=== PATIENT | male | born 1970 | race Caucasian/White ===

== ENCOUNTER 2018-09-11 08:59 | Day surgery (SDC) | payer BC, SELFPAY ==
--- NOTE | 2018-09-11 06:28 | W.COLOREPORT ---
Date of service: 09/11/18 Time of Service: 11:06 Colonoscopy Report Date of procedure: 09/11/18 Pre-op diagnosis general: Colon Cancer Screening Post-op diagnosis procedure note: other (Sigmoid Diverticulosis) Procedure: Colonoscopy Surgeon: Genny Montes De Oca Anesthesia proc note operative: other (General/ ASA 2/ Jana Mireles CRNA) Estimated blood loss (mL): 0 Pathology: none sent Complications: None Disposition: same day Indications: Mr. Baker is a pleasant 48 year old male seen in the office for his first screening colonoscopy. He has no family history of colon cancer that he is aware of. Risks, benefits and complications have been reviewed. Complications include but are not limited to bleeding, pain, perforation, missed small lesion/polyp, sore throat, aspiration and adverse reaction to the medications. Questions were entertained and answered to their satisfaction and they wished to proceed. No guarantees were given or implied. Prep: Miralax/Dulcolax Procedure Start Time: 11:06 Procedure End Time: 11:26 Retraction Time: 13 minutes Findings: Moderate sigmoid diverticulosis Procedure Description: After informed consent was obtained the patient was taken to the procedure room and placed in a left decubitous position. Monitors were applied and a time out was done. The patients name, date of , procedure, allergies to medications and metal in their body was reviewed. The patient was then sedated. Once sedated and comfortable a rectal exam was done. External exam was normal. Internal exam revealed a normal sphincter tone and no palpable masses. The prostate felt smooth. The scope was then introduced and retro-flexed. No internal hemorrhoids were identified. The scope was then advanced to the cecum without difficulty. The TI and appendiceal orifice were identified. The prep was good. The scope was then slowly retracted over 13 minutes back into the rectum. There were no polyps. There was moderate diverticulosis of the sigmoid colon. The scope was removed and the patient was woken up and taken back to Same day surgery in stable condition. The patient tolerated the procedure well and there were no immediate complications. Follow up: The patient should follow up in 10 years unless they develop changes in bowel habits or other new gastrointestinal complaints.
--- NOTE | 2018-09-11 06:38 | W.PM.DSUDISC ---
Discharge Plan Disposition Patient Disposition: HOME Condition: Good Discharge Details Reason For Visit: SCREENING Attending Provider: Genny Montes De Oca Primary Care Provider: Wendy Alvarez Home Meds and New Rx's Prescriptions: Continued ibuprofen [Advil Liqui-Gel] 200 MG capsule 400 mg PO Q6H PRN RF: 0 Discontinued polyethylene glycol 3350 17 gram/dose powder 238 g PO ONCE Qty: 238 RF: 0 bisacodyl [Dulcolax (bisacodyl)] 5 mg tablet,delayed release (DR/EC) 5 mg PO ONCE Qty: 4 RF: 0 Discharge Instructions Instructions: Colonoscopy (DC), Diverticulosis (DC) Additional Instructions: Findings: Diverticulosis Follow up: 10 years Please call if you develop: fevers >101.5 Nausea or Vomiting Abdominal pain that is not transient DAY SURGERY UNIT POST COLONOSCOPY INSTRUCTIONS 1. Because there will be medication in your system for the next 24 hours, you may feel a little sleepy. Your coordination will be affected. Therefore: a. Do not drive or operate dangerous equipment for 24 hours. b. Do not drink alcohol beverages for 24 hours (not even beer). c. Plan to go home and rest for the day. 2. Generally there are no restrictions on your activity after a day or so has gone by, but you may feel a bit fatigued for a few days. 3 After you arrive home you may have a light meal and return to a normal diet as you can tolerate it without feeling sick to your stomach. 4. After surgery, you may feel pain or discomfort. This should be only transient, but if it persists please contact your doctor. 5. If there are any questions regarding the findings of your procedure, please feel free to contact your doctor. 6. If you are unable to contact your doctor with a problem, contact the hospital at [phone]. 7. Continue all your regular medications unless directed otherwise. I understand the above instructions and have no questions. Signature of Patient or Responsible Adult Escort Date/Time Name of Responsible Adult Escort Signature of Nurse Date/Time Activity:: Activity as Tolerated Diet:: High Fiber diet Discharge Orders Discharge Orders: Discharge Order (Routine); Ordered 09/11/18 Ordered By: Genny Montes De Oca DS: Diagnosis Discharge Diagnosis (1) S/P colonoscopy: Status: Acute (2) Diverticulosis: Status: Acute
[2018-09-11 09:19] VITALS: BP 142/98; PULSE 80; RESP 20; TEMP 37.3; O2SAT 97
[2018-09-11] MEDS: Lactated Ringers 1,000 ML 80 ML IV (09:50)
[2018-09-11 12:03] VITALS: BP 105/73; PULSE 78; RESP 16; TEMP 36.6; O2SAT 95
[2018-09-11 12:44] VITALS: BP 113/75; PULSE 84; RESP 16; TEMP 36.8; O2SAT 97
== END 2018-09-11 12:55 | disposition home or self-care (01) ==
LOC: SUR 08:59
PROVIDERS: PCP Nurse Practitioner; Visit Provider Surgery
PROC: 0DJD8ZZ Inspection of Lower Intestinal Tract, Via Natural or Artificial Opening Endoscopic (ICD-10-PCS; CPT 45378; principal; 2018-09-11 10:30)
DX: Z12.11 Encounter for screening for malignant neoplasm of colon (principal); K57.30 Diverticulosis of large intestine without perforation or abscess without bleeding
CPT/HCPCS: 45378

== ENCOUNTER 2018-10-24 09:00 | Day surgery (SDC) | payer OTHER, SELFPAY ==
--- NOTE | 2018-10-24 07:43 | W.PREOPHP ---
Date of service: 10/24/18 Time of Service: 10:05 Assessment and Plan (1) Prepatellar bursitis of right knee: Current visit: No Status: Acute Mark is a 48-year-old who has persistent pre-patella bursa of the right knee. 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 He is tried to treat this conservatively but continues to have limitations. It is quite large and has not receded in size over time. Therefore, I recommended surgical excision. I discussed the risk of the procedure to include bleeding, infection, pain, stiffness, recurrence, wound healing issues and persistent drainage, need for repeat procedures. Despite these risk, he elects to proceed. 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 He has had some mild redness in the past but nothing persistent. Never any drainage. The fluid has not decreased in size and continues to limit his ability to kneel and squat which is essential in his occupation. He has failed conservative options. Review of Systems Review of Systems All systems reviewed & are unremarkable except as noted in HPI and below PFSH Medical History Diverticulosis (Acute ~09/11/18) Elevated blood pressure reading (Acute) Family history of colitis in mother (Chronic) Family history of colon cancer (Chronic) Skin tag (Chronic) Surgical History History of hernia repair (Chronic) S/P colonoscopy (Acute ~09/11/18) Family History Other Family history of colitis in mother Family history of colon cancer Prostate CA Social History Smoking/Tobacco Use Status: Never Alcohol Intake: current Alcohol Intake frequency: holidays/special occasions only Alcohol type: beer Drug use: Never Substance use type: does not use Details: Alcohol rare last time being in September Do you feel safe at home: Yes Do you feel safe in your relationship?: Yes Meds Home Medications Medication Instructions Recorded Confirmed Type ibuprofen [Advil Liqui-Gel] 400 mg PO Q6H PRN tab-cap 09/17/14 10/24/18 History Allergies Allergy/AdvReac Type Severity Reaction Status Date / Time No Known Allergies Allergy Verified 10/24/18 09:16 Exam Const General: cooperative, healthy appearing, comfortable and no acute distress Nutritional Appearance: average body habitus Orientation: alert, awake and oriented x3 Resp Effort & Inspection: normal respiratory effort Auscultation: clear to auscultation bilaterally Cardio Rate: regular rate Rhythm: regular rhythm Extrem Other: Right knee has a large prepatellar bursa. There is fluctuacne of the bursa. No erythema. No pain with knee range of motion except extreme flexion. 5/5 knee extension strength. No distal edema.
[2018-10-24 09:19] VITALS: BP 146/94; PULSE 75; RESP 16; TEMP 36.1; O2SAT 96
[2018-10-24] MEDS: Lactated Ringers 1,000 ML 80 ML IV ×2 (09:49→14:55)
--- NOTE | 2018-10-24 10:05 | PDOC.DSDIS_ITS ---
Discharge Plan Disposition Patient Disposition: HOME Condition: Good Discharge Details Reason For Visit: Right Prepatellar Bursitis Attending Provider: Jose G Pena Primary Care Provider: Wendy Alvarez Home Meds and New Rx's Prescriptions: New hydrocodone-acetaminophen 5-325 mg tablet 1 tab PO Q6H PRN PRN (Reason: pain) Qty: 4 RF: 0 acetaminophen 500 mg tablet 1,000 mg PO Q8H PRN (Reason: pain) Qty: 30 RF: 3 ibuprofen 600 mg tablet 600 mg PO TID PRNQty: 30 RF: 3 Discontinued ibuprofen [Advil Liqui-Gel] 200 MG capsule 400 mg PO Q6H PRN RF: 0 Discharge Instructions Additional Instructions: Activity: You may start moving as soon as you'd like, but you should avoid any deep flexion, squatting, or kneeling until cleared by Dr. Pena. Dressings: The XU wrap may be removed after [address] hours. The initial knee dr essing under the XU wrap can stay on until your follow up. If it gets soaked or soiled, it may come down after 48-72 hours. You may shower and get the dressing wet but not soaked. You should keep the wounds covered with a light gauze dressing until follow-up if the initial dressing is comes off. Medications: - Rarely does this require any stronger pain medications. You have had a few Hydrocodone called in for breakthrough pain. - Recommend to take up to 1000mg of Acetaminophen (Tylenol) and 600mg of Ibuprofen (Advil) every 8 hours as needed. These larger strength tablets were called in but you also may use [id number]. Follow-up: 7-10 days Referrals: Jose G Pena MD [ [facility] STAFF PHYSICIAN] - Equipment/Supplies: Partial Weight Bearing Crutches Activity:: Activity as Tolerated Remove Dressings/Wound Care:: 72 hours Shower/Bathe:: 72 hours Diet:: As Tolerated Discharge Orders Discharge Orders: Discharge Order (Routine); Ordered 10/24/18 Ordered By: Jose G Pena DS: Diagnosis Discharge Diagnosis (1) Prepatellar bursitis of right knee: Status: Acute
[2018-10-24] MEDS: ceFAZolin 2 GM/50 ML BAG IVPB (14:07)
[2018-10-24 15:30] VITALS: BP 141/98; PULSE 63; RESP 16; TEMP 36.4; O2SAT 98
[2018-10-24] MEDS: HYDROcodone 5/Acetaminophen 325 TAB PO (16:20)
--- NOTE | 2018-10-24 16:50 | ROE_ITS ---
DATE OF SURGERY: October 24, 2018 PREOPERATIVE DIAGNOSIS: Right prepatellar bursitis. POSTOPERATIVE DIAGNOSIS: Right prepatellar bursitis. SURGERY: Excision of prepatellar bursa, right knee. SURGEON: Jose G Pena M.D. TRIMMER OPERATOR: Alexa Draper PA-C ANESTHESIA: General. ESTIMATED BLOOD LOSS: 20 cc's COMPLICATIONS: None. DISPOSITION: The patient was awakened from anesthesia and taken to same-day surgery in a stable cond ition. 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 He has had repetitive t rauma to the anterior aspect of his right knee and has a residual and large prepatellar bursa. He theodore s tried multiple nonoperative treatment options but continued to have pain. Given the persistence of this large fluctuant mass at the front of his right knee, I offered an excision. I reviewed the ris ks of the procedure to include bleeding, infection, pain, stiffness, recurrence, wound healing compli cations. Despite these risks, he elected to proceed. PROCEDURE DESCRIPTION: Mark was greeted in the preoperative holding area. His identity was [place] and the correct side was identified and marked. The consent was reviewed with the patient and s igned. The history and physical was updated. He was taken back to the Operating Room. He was place d in the supine position. All bony prominences were well-padded. A non-sterile tourniquet was place d high up on the right leg. The right leg was then prepped with ChloraPrep and draped in a standard fashion. Prophylactic antibiotics in the form of Cefazolin were given. A time-out was performed for safe surgery. A midline incision was made over the right knee. No tourniquet was used. The incision was taken int o the skin only. Once incising the skin the bursal sac was easily identifiable and was incidentally penetrated. There was a copious amount of clear serous fluid from within the cyst. Once this was re moved, the rind from the bursa was identified and dissected off the overlying dermis. It was taken d own all the way around the edges so that it was able to be freed up. This rind was then removed with a rongeur, as it was peeled off the underlying patellar tendon and knee retinaculum. It was separat ed from the overlying dermis. This was worked both superiorly and inferiorly and medially and latera lly. The extent was all the way down distal to the tibial tubercle and proximal to the superior pole of the patella. There were some small raphae within the bursa which were thickened and which were r emoved. There were also a few small loose bodies. These were also removed. Once this bursal sac theodore d been removed in whole there was good bleeding in the tissues. There was no remnant bursal tissue i dentified. The wound was then thoroughly irrigated. 0.5% Bupivacaine with epinephrine was injected in the skin, dermal tissues and deep layer tissues from the resection. This was then closed with a # 2-0 Vicryl followed by a #4-0 Monocryl. A Mepilex Silver Dressing was applied to the knee and the kn ee was wrapped with a [id number] XU wrap to apply compression. A Cryo Cuff was administered. At the end of the case all counts were correct. He was taken back to the PACU in a stable condition.
== END 2018-10-24 17:20 | disposition home or self-care (01) ==
PROVIDERS: PCP Nurse Practitioner; Visit Provider Student in an Organized Health Care Education/Training Program
PROC: (CPT 27340; principal; 2018-10-24 11:30)
DX: M70.41 Prepatellar bursitis, right knee (principal); M25.561 Pain in right knee; Y99.0 Civilian activity done for income or pay
CPT/HCPCS: 27340; NC; E0114; J0690; J1100; J2405; J3010

== ENCOUNTER 2019-05-23 14:16 | Outpatient (CLI) | payer OTHER, BC, SELFPAY ==
--- NOTE | 2019-05-23 14:00 | DI.RAD_ITS ---
EXAM: XR ANKLE LT COMPLETE CLINICAL HISTORY: Pain TECHNIQUE: 2D digital imaging was performed. COMPARISON: No exams were available for comparison FINDINGS: BONES: No acute fracture is present. No bony destructive lesion is seen. JOINTS:The ankle mortise is normally aligned. SOFT TISSUE: There is mild soft tissue swelling around the malleoli. . IMPRESSION: Unremarkable radiographs of the left ankle. DATA REPOSITORY: RADIATION DOSE DELIVERED:
--- NOTE | 2019-05-23 14:00 | DI.RAD_ITS ---
EXAM: XR FOOT LT COMPLETE CLINICAL HISTORY: Pain. TECHNIQUE: 2D digital imaging was performed. COMPARISON: No exams were available for comparison FINDINGS: BONES: No acute fracture is present. No bony destructive lesion is seen. JOINTS: No dislocation present. SOFT TISSUE: Normal. IMPRESSION: Unremarkable radiographs of the left foot. DATA REPOSITORY: RADIATION DOSE DELIVERED:
== END 2019-05-23 14:36 ==
PROVIDERS: PCP Nurse Practitioner; Visit Provider Student in an Organized Health Care Education/Training Program
DX: M79.672 Pain in left foot (principal); M25.572 Pain in left ankle and joints of left foot
CPT/HCPCS: 73610; 73630

== ENCOUNTER 2019-08-21 02:47 | Outpatient (CLI) | payer OTHER, SELFPAY ==
--- NOTE | 2019-08-21 06:45 | DI.MRI_ITS ---
EXAM: MR LOWER EXTREMITY LT WO CLINICAL HISTORY: Persistent pain,weakness great toe MCPJ,S93.529A,TURF TOE. TECHNIQUE: Multiplanar multisequence MRI was performed. COMPARISON: CR XR FOOT LT COMPLETE from 05/23/2019 FINDINGS: There appears to be disruption of the plantar capsuloligamentous complex of the 1st metatarsophalange al joint. There is hyperintense signal seen in the distal aspect of the 1st metatarsal and both the medial and lateral sesamoids. The lateral sesamoid is bipartite. A fracture cannot be excluded. Degenerative changes are seen at the 1st metatarsophalangeal joint. Subchondral cysts are seen at th e 1st MTP joint. Mild marrow edema seen in the heads of the 2nd and 3rd metatarsals. No findings to suggest an acute fracture or avascular necrosis are present. The tendons associated with the 1st toe are intact. There is an effusion at the 1st MTP joint. Edema is seen in the plantar subcutaneous tissues at the 1st MTP joint IMPRESSION: Apparent disruption of the plantar capsule ligament complex at the 1st metatarsophalangeal joint. Bipartite lateral sesamoid. Fracture cannot be excluded. Degenerative changes seen at the 1st MTP joint. DATA REPOSITORY:
== END 2019-08-21 03:07 ==
PROVIDERS: PCP Nurse Practitioner; Visit Provider Student in an Organized Health Care Education/Training Program
DX: M79.675 Pain in left toe(s) (principal); S93.522A Sprain of metatarsophalangeal joint of left great toe, initial encounter; M19.072 Primary osteoarthritis, left ankle and foot
CPT/HCPCS: 73718

== ENCOUNTER 2020-02-11 18:22 | Emergency (ER) | payer BC, SELFPAY ==
--- NOTE | 2020-02-11 18:23 | ED.GENADUL_ITS ---
Discharge Plan Discharge Details Chief Complaint: Burn Clinical Impression: Second degree burn of left foot Primary Care Provider: Wendy Alvarez ED Provider: Martha Morales Home Meds and New Rx's Prescriptions: No Action acetaminophen 500 mg tablet 1,000 mg PO Q8H PRN (Reason: pain) Qty: 30 RF: 3 ibuprofen 600 mg tablet 600 mg PO TID PRNQty: 30 RF: 3 Discharge Instructions Instructions: Second-Degree Burn (ED) Additional Instructions: continue wound care. wash daily with warm soapy water, rinse well, pat dry gently. apply thin layer of bacitracin or neosporin and dry dressing to protect. you have been referred to wound care clinic in [facility], case management here will call to schedule appointment. [phone] Medical Decision Making wounds examined with no evidence of infection. bacitracin and dry dressing applied. patient will be referred to wound care clinic in [place] for p ossible debridement and further management tetanus updated. last tetanus update was in 2011 wound care instructions given HPI General Mode of arrival: ambulatory . Date/Time Provider Initiated Documentation: 02/11/20 18:23 . Limitations to Documentation: no limitations . Information obtained by: patient . HPI Narrative: presents for evaluation of burn to dorsal aspect of left foot, no fevers no surrounding erythema wound bed with slough skin and some blisters still intact. no purulent drainage. Related Data Home Medications Medication Instructions Recorded Confirmed acetaminophen 1,000 mg PO Q8H PRN #30 tab 10/24/18 02/11/20 ibuprofen 600 mg PO TID PRN #30 tab 10/24/18 02/11/20 Previous Rx's Medication Instructions Recorded acetaminophen 1,000 mg PO Q8H PRN #30 tab 10/24/18 ibuprofen 600 mg PO TID PRN #30 tab 10/24/18 Allergies Allergy/AdvReac Type Severity Reaction Status Date / Time No Known Allergies Allergy Verified 02/11/20 18:32 Review of Systems Constitutional Constitutional: Denies fever(s) Integumentary/Breasts Skin/Breast: Reports wounds (2nd degree burn to dorsal aspect of left foot and toes, no circumferential ) Comments: no sign of infection [facility] Medical History (Updated 02/11/20 @ 18:50 by Martha Morales NP) Diverticulosis (~09/11/18) Elevated blood pressure reading Family history of colitis in mother Family history of colon cancer cousin, age 49, stage 2 Skin tag Surgical History History of hernia repair Prepatellar bursitis of right knee S/P prepatellar bursa excision on 10/24/2018 S/P colonoscopy (~09/11/18) Family History Other Family history of colitis in mother Family history of colon cancer Prostate cancer Social History Smoking/Tobacco Use Status: Never Smoking risk assessment performed?: Yes Alcohol Intake: current Alcohol Intake frequency: holidays/special occasions only Alcohol type: beer Drug use: Never Substance use type: does not use Current gender identity: male Do you feel safe at home: Yes Do you feel safe in your relationship?: Yes Exam Const General: cooperative, healthy appearing, comfortable and no acute distress Nutritional Appearance: average body habitus Orientation: alert, awake and oriented x3 Resp Effort & Inspection: normal respiratory effort Cardio Rate: regular rate (good pedal pulse) Rhythm: regular rhythm Skin Lesions: lesion noted (left foot dorsal aspect, involving great toe, not circumferential, blisters) Full body images: 1. 7 cm x 7 cm 2nd degree burn, slough wound bed, no surrounding erythema 2. 1 cm blisters intact at each base of 2-3-4 digit Neuro General: patient alert, patient awake and patient oriented x3 Cognition: normal cognition
[2020-02-11 18:29] VITALS: BP 186/97; PULSE 99; RESP 16; TEMP 36.4; O2SAT 97
--- NOTE | 2020-02-11 18:44 | NUR.NOTE ---
Referral to Care Management to get patient appt at the wound clinic in [facility].Nursing Note:
--- NOTE | 2020-02-12 13:26 | PDOC.ERCMPRO ---
- If Service Date Differs Date of service: 02/12/20 Time of Service: 13:26 Care Management Progress Note Mark is seen in the ED on 02/11/20 for a second degree burn to the top of his left foot. At the request of ED provider, JUVENTINO coordinates a referral to the Wound Healing Center at [facility] in [place], [place]. JUVENTINO telephones the Wound Center and schedules an appointment for Mark on February at 2:30 pm. JUVENTINO also calls Mark to advise him of the appointment date and time.
== END 2020-02-11 19:10 ==
PROVIDERS: Emergency Provider Nurse Practitioner Acute Care; PCP Nurse Practitioner
DX: T25.022A Burn of unspecified degree of left foot, initial encounter (principal); X12.XXXA Contact with other hot fluids, initial encounter
CPT/HCPCS: 16020; 90471

== ENCOUNTER → 2022-02-12 11:47 | Outpatient (CLI) | payer BC, SELFPAY ==
--- NOTE | 2022-02-12 | DI.RAD_ITS ---
Exam(s) XR SHOULDER RT COMPLETE 2+V EXAM: XR SHOULDER RT COMPLETE 2+V CLINICAL HISTORY: PAIN RT SHOULDER M25.511, S/P FALL AND HYPEREXTENSION. TECHNIQUE: 2D digital imaging was performed. Five views. COMPARISON: No exams were available for comparison FINDINGS: BONES: No acute fracture is present. No bony destructive lesion is seen. JOINTS: No dislocation present. Mild spurring at AC joint. Mild narrowing of the glenohumeral joint . Mild spurring inferior glenoid and adjacent aspect of the humeral head. Spurring and subchondral cysts at the greater tuberosity. SOFT TISSUE: Normal. IMPRESSION: Degenerative changes. DATA REPOSITORY: RADIATION DOSE DELIVERED:
== END ==
PROVIDERS: PCP Nurse Practitioner; Visit Provider Nurse Practitioner Family
DX: M19.011 Primary osteoarthritis, right shoulder (principal)
CPT/HCPCS: 73030

== ENCOUNTER 2023-01-10 11:32 | Outpatient (REF) | payer BC, SELFPAY ==
[2023-01-10 15:13] LABS: Abs Immature Grans 0.01 10^3/uL (0.0-0.06); Absolute Basophil Count 0.03 10^3/uL (0.0-0.2); Absolute Eosinophil Count 0.05 10^3/uL (0.0-0.7); Absolute Lymphocyte Count 2.34 10^3/uL (1.2-3.4); Absolute Monocyte Count 0.49 10^3/uL (0.1-0.8); Basophils % 0.5; Eosinophils % 0.8; HCT 47.1 % (40.0-50.0); HGB 16.6 g/dL (13.5-17.5); Immature Grans % 0.2; MCH 29.3 pg (27.0-33.0); MCHC 35.2 % (32.0-36.0); MCV 83 fL (80-95); MPV 9.4 fL (8.0-11.0); Monocytes % 7.8; Neutrophils % 53.7; Platelet Count 248 10^3/uL (130-400); RBC 5.66 10^6/uL (4.36-5.78); RDW 12.2 % (11.8-14.1); RDW-SD 37.5 fL; WBC 6.32 10^3/uL (4.4-10.8)
[2023-01-10 15:39] LABS: ALT 33 U/L (16-63); AST 17 U/L (15-37); Albumin 4.6 g/dL (3.4-5.0); Alkaline Phosphatase 65 U/L (46-116); Anion Gap 11.5 mmol/L (3-11); BUN 16 mg/dL (7-18); Bilirubin, Total 0.6 mg/dL (0.2-1.0); CO2 24.5 mmol/L (21.0-32.0); CREATININE 0.9 mg/dL (0.70-1.30); Calcium 9.5 mg/dL (8.5-10.1); Calculated LDL 99 mg/dL (<100); Chloride 105 mmol/L (98-107); Cholesterol 167 mg/dL (<200); Estimated GFR 101.49 (mL/min/1.73m2); Glucose 112 mg/dL (74-106); HDL Cholesterol 47 mg/dL (40-60); Potassium 4.4 mmol/L (3.5-5.1); Sodium 141 mmol/L (136-145); TSH (W/Ref FT4) 1.12 uIU/mL (0.36-3.74); Total Protein 7.8 g/dL (6.4-8.2); Triglyceride 107 mg/dL (<150)
[2023-01-10 16:18] LABS: COMMENT (LAB VIEW ONLY) 53.38 mg/dL; Microalb ug/mg Crea 13.1 ug/mg Cr
[2023-01-10 16:43] LABS: Hemoglobin A1C 5.8 % (<5.7)
[2023-01-10 22:23] LABS: PSA, Screening 1.3 ng/mL (<=3.5)
== END 2023-01-10 11:33 | disposition home or self-care (01) ==
LOC: NCHCN 11:32
PROVIDERS: PCP Nurse Practitioner; Visit Provider Nurse Practitioner Family
DX: R03.0 Elevated blood-pressure reading, without diagnosis of hypertension (principal); R73.9 Hyperglycemia, unspecified; Z00.00 Encounter for general adult medical examination without abnormal findings; Z80.42 Family history of malignant neoplasm of prostate
CPT/HCPCS: 80053; 80061; 84153; 82043; 82570; 83036; 84443; 85025; 87086

== ENCOUNTER → 2023-03-30 14:51 | Outpatient (CLI) | payer OTHER, BC, SELFPAY ==
--- NOTE | 2023-03-30 | DI.RAD_ITS ---
Exam(s) XR SHOULDER LT COMPLETE 2+V EXAM: XR SHOULDER LT COMPLETE 2+V CLINICAL HISTORY: PAIN LEFT SHOULDER M25.512. TECHNIQUE: 2D digital imaging was performed. COMPARISON: CR XR SHOULDER RT COMPLETE 2+V from 02/12/2022 FINDINGS: Four views. No evidence of fracture or dislocation nor abnormal soft tissue calcifications. Subacromial space is not diminished. There are no obvious degenerative changes in the glenohumeral joint. Some degenera tive cysts are noted in the greater tuberosity on the lateral aspect of the humeral head. The clavic le and AC joint appear unremarkable on these images. No osseous lesions. IMPRESSION: No evidence of fracture or dislocation. DATA REPOSITORY: RADIATION DOSE DELIVERED:
== END ==
PROVIDERS: PCP Nurse Practitioner; Visit Provider Physician Assistant Medical
DX: M25.512 Pain in left shoulder (principal)
CPT/HCPCS: 73030

== ENCOUNTER 2023-10-25 02:01 | Outpatient (CLI) | payer OTHER, SELFPAY ==
--- NOTE | 2023-10-25 | DI.MRI_ITS ---
Exam(s) MR UPPER JOINT LT WO EXAM: MR UPPER JOINT LT WO CLINICAL HISTORY: M25.512 Pain LT shoulder,S46.002D INJ of muscles/tendons of rotator cuff lt. TECHNIQUE: Multiplanar multisequence MRI was performed. COMPARISON: CR XR SHOULDER LT COMPLETE 2+V from 03/30/2023 FINDINGS: BONES: There is no fracture or contusion pattern. JOINTS: [id number] degenerative changes are seen at the acromioclavicular joint. The glenohume ral joint is normal. There is a small amount of fluid seen in the glenohumeral joint. TENDONS: Supraspinatus: There is a full-thickness tear of the supraspinatus tendon from its insertion site ant eriorly. There is retraction of the tendon. Infraspinatus: Unremarkable. Subscapularis: There is a partial tear of the subscapularis tendon from its insertion site superiorly . There is tendinosis of the tendon. Teres Minor: Unremarkable. Biceps and [place]: There is medial subluxation of the biceps tendon. There is also thickening and in termediate signal of the tendon suggesting tendinosis. MUSCLES: Unremarkable. GLENOID LABRUM: There is some fraying of the glenoid labrum anteriorly. SOFT TISSUES: Unremarkable. LIGAMENTS: Unremarkable. OTHER: There is fluid in the subacromial subdeltoid bursa. IMPRESSION: 1. Full-thickness tear of the supraspinatus tendon with mild retraction. 2. Partial tear of the subscapularis tendon. 3. Medial subluxation and tendinosis of the biceps tendon. 4. Degenerative changes seen at the acromioclavicular joint. DATA REPOSITORY:
== END 2023-10-25 02:21 ==
PROVIDERS: PCP Nurse Practitioner; Visit Provider Nurse Practitioner Family
DX: M75.122 Complete rotator cuff tear or rupture of left shoulder, not specified as traumatic (principal)
CPT/HCPCS: 73221

== ENCOUNTER 2023-12-01 05:58 | Day surgery (SDC) | payer OTHER, BC, SELFPAY ==
[2023-12-01] VITALS (49 sets, daily range): BP systolic 104–165; BP diastolic 64–104; PULSE 69–85; RESP 12–25; TEMP 36.3–36.8; O2SAT 87–97; BMI 30.1
--- NOTE | 2023-12-01 04:17 | W.ANESPRE ---
General Info Date of Service Date Performed: 12/01/23 Height: 5 ft 11 in Weight: 97.9 kg Body Mass Index (BMI): 30.1 Surgical Procedure: Operation Date: 12/01/23 07:55 Proposed Procedure Side Surgeon p Shoulder Rotator Cuff Arthroscopic w/ Extensive Debridement, Biceps Tenodesis, Subacromial Decompression Left Gallito Spencer MD Meds Allergies and Home Medications Allergies Allergy/AdvReac Type Severity Reaction Status Date / Time No Known Allergies Allergy Verified 12/01/23 06:04 Home Medication ?Medication ?Instructions ?Recorded acetaminophen 500 mg tablet 1,000 mg (2 x 500 mg) PO Q8H PRN 10/24/18 pain #30 tabs olmesartan 20 mg tablet 20 mg PO DAILY 11/29/23 naproxen 250 mg tablet 250 - 500 mg (1 - 2 x 250 mg) PO 12/01/23 BID PRN moderate pain and swelling #40 tabs oxycodone 5 mg tablet 5 - 10 mg (1 - 2 x 5 mg) PO .q4-6h 12/01/23 PRN severe pain #18 tabs Current Visit Medications: Current Medications Generic Name Dose Route Start Last Admin Trade Name Freq PRN Reason Stop Dose Admin Ringer's Solution 1,000 mls @ 30 mls/hr 12/01/23 06:00 IV 12/30/23 23:59 INFUSION JATIN Cefazolin Sodium 3,000 mg/ 100 mls @ 200 mls/hr 12/01/23 06:00 Sodium Chloride IVPB 12/01/23 16:00 PREOP JATIN Tranexamic Acid/Sodium Chloride 1,000 mg in 100 mls @ 600 mls/hr 12/01/23 06:00 IVPB 12/01/23 16:00 PREOP JATIN IV Miscellaneous Supplies 1 each 12/01/23 06:00 Iv Access IV 12/30/23 23:59 DIRECTED JATIN Sodium Chloride 0 ml 12/01/23 06:00 Normal Saline Flush 10 Ml Syr IV 12/30/23 23:59 PRN PRN Sodium Chloride 0 ml 12/01/23 06:00 Normal Saline 10 Ml Vial IJ 12/30/23 23:59 DIRECTED PRN Sterile Water 0 ml 12/01/23 06:00 Water,Injection,Sterile 10 Ml Vial IJ 12/30/23 23:59 DIRECTED PRN PFSH Active Problems Active Problems: Problem Status Onset Code Tendinitis of long head of biceps brachii of left shoulder Acute M75.22 Left rotator cuff tear Acute M75.102 Achilles tendon sprain Acute 05/14/19 S86.019A Turf toe Acute 05/14/19 S93.529A Diverticulosis Acute ~09/11/18 K57.90 Medical History Medical History Elevated blood pressure reading Skin tag Family history of colon cancer cousin, age 49, stage 2 Family history of colitis in mother Surgical History Surgical History Prepatellar bursitis of right knee S/P prepatellar bursa excision on 10/24/2018 S/P colonoscopy (~09/11/18) History of hernia repair Tobacco Smoking/Tobacco Use Status: Never Alcohol Alcohol Intake: current Alcohol intake frequency: holidays/special occasions only Alcohol type: beer Substance Use Substance use: Never Substance use type: does not use Vital Signs and Lab Results Vital Signs Most Recent Vital Signs in EMR: Temp Pulse Resp BP 36.7 C 74 18 149/100 H 12/01/23 06:14 12/01/23 06:14 12/01/23 06:14 12/01/23 06:14 Lab Results Blood Type / Crossmatch: No Data to Display Complete Blood Count: No Data to Display Complete Metabolic Panel: No Data to Display Liver Function Panel: No Data to Display Coagulation Panel: No Data to Display Cardiac Panel: No Data to Display Arterial Blood Gas: No Data to Display Venous Blood Gas: No Data to Display Pancreas Panel: No Data to Display Thyroid Panel: No Data to Display Infectious Disease: No Data to Display Blood Cultures: No Data to Display Toxicology Panel: No Data to Display Anesthesia Assessment and Plan Anesthesia History Personal History: No History of Anesthesia Complications Family History: No Family History of Anesthesia Complications Exercise Tolerance Exercise Tolerance: Metabolic Equivalents>4 Pertinent Negatives Pertinent Negatives: No Symptoms of GERD, No Major Cardiovascular Symptoms or Complaints, No Major Pulmonary Symptoms or Complaints and No History of CVA/TIA Cardiac & Pulmonary Exam Cardiac Exam: Normal S1/S2 Heart Sounds Pulmonary Exam: Clear Bilateral Breath Sounds Implantable Cardiac Device Does patient have a Pacemaker or an ICD?: No Airway Exam Known Difficult Airway: No Mallampati Class: 2 Mouth Opening: Normal (> 3cm) Thyromental Distance: Greater than 3 cm Neck Range of Motion: Full ROM Neck Circumference: Normal Teeth Condition: Normal Dentition ASA Classification ASA Score: ASA 2 Emergency Case?: No NPO Status NPO Status: NPO Clears >2 hours, Solids >8 hours Anesthesia Plan Resuscitation Status: Full Code Anesthesia Technique: General Anesthesia Airway Planned: Endotracheal Tube Pain Management: Surgeon and patient request nerve block Monitors Used: Standard Monitors Preoperative Comments:: 53 yo male for shoulder scope. Sig PMHx: HTN (olmesartan), never smoker, occ etOH.
[2023-12-01] MEDS: Lactated Ringers 1,000 ML 30 ML IV (06:30)
--- NOTE | 2023-12-01 07:10 | PDOC.DSDIS_ITS ---
Date of service: 12/01/23 Time of Service: 10:00 Discharge Plan Disposition Patient Disposition: Home Condition: Stable Discharge Details Attending Provider: Gallito Spencer Primary Care Provider: CHAPO SYED Home Meds and New Rx's Prescriptions: New naproxen 250 mg tablet 250 - 500 mg PO BID PRN (Reason: moderate pain and swelling) Qty: 40 0RF oxycodone 5 mg tablet 5 - 10 mg PO .q4-6h MDD 30 mg PRN (Reason: severe pain) Qty: 18 0RF Continued acetaminophen 500 mg tablet 1,000 mg PO Q8H PRN (Reason: pain) Qty: 30 3RF olmesartan 20 mg tablet 20 mg PO DAILY Patient Comments: TAKE ONE TABLET BY MOUTH EVERY DAY FOR BLOOD PRESSURE Discontinued ibuprofen 600 mg tablet 600 mg PO TID PRNQty: 30 3RF Discharge Instructions Additional Instructions: Surgery: Left shoulder arthroscopy with massive rotator cuff repair (ubscapularis, supraspinatus, and infraspinatus), biceps tenodesis, extensive debridement, and subacromial decompression. Activity: For 6 weeks, you should keep your arm at your side in a neutral position at all times except for physical therapy. Do not try to lift or raise your arm using your own muscles. You should use the sling whenever you are out of the house. At home it is best to remove the sling and rest the arm on a pillow at your side or support the operative side with your other hand. You may allow the arm to dangle at your side. A physical therapy prescription will be sent electronically to begin in about 3 weeks. CONSERVATIVE protocol. Prescriptions: Naproxen 250 mg take 1-2 every 12 hours with a meal as needed for moderate pain Oxycodone 5 mg take 1-2 every 4-6 hours as needed for severe pain You may use [id number] Tylenol (acetaminophen) as needed for mild pain. These pain medications may be taken all at once or in different combinations as needed. Also, recommend Colace (docusate) as a stool softener as surgery and pain medicine cause constipation. You may try [id number] diphenhydramine (Benadryl) 25-50 mg nightly as a sleep aid Dressings: Remove shoulder bandage after 3 days. Leave the sticky Steri-Strips in place until they fall off or remove them after you shower. Cover the incisions with Band-Aids or leave them open to air. You may shower after 5 days. Follow-up: 10-[address] Spencer You may take off the leg compression stockings this evening at home. You may also leave them on a few days longer if you have a history of leg swelling or edema. Let us know right away if you develop any redness, drainage, fevers, chest pain, or trouble breathing. Do not drink alcohol or drive for at least 24 hours after anesthesia. Please call the office during business hours with any questions or concerns. Stand Alone Forms: Anesthesia Discharge Inst., Anes.Nerve Block Instructions, Sam Woodson (DSU) Referrals: Gallito Spencer MD [ [facility] STAFF PHYSICIAN] - 12/14/23 11:00 am Discharge Orders Discharge Orders: Discharge Order (Routine); Ordered 12/01/23 Ordered By: Negin Vargas DS: Diagnosis Discharge Diagnosis (1) Left rotator cuff tear: Status: Acute (2) Tendinitis of long head of biceps brachii of left shoulder: Status: Acute
--- NOTE | 2023-12-01 07:18 | W.PM.OP ---
Date of service: 12/01/23 Time of Service: 08:00 Operative Note Operative Note DATE OF PROCEDURE: 12/01/23 PRE-OP DIAGNOSIS: Left: 1. Rotator cuff tear 2. LHB partial tearing 3. Bursitis POST-OP DIAGNOSIS: same PROCEDURE: Left: 1. Rotator cuff repair, CPT# 51050. This involved repair of the subscapularis, supraspinatus, and infraspinatus using anchors and sutures to repair and reattach the rotator cuff back to the footprint of the greater tuberosity. 2. Arthroscopic biceps tenodesis, CPT# 62613. This involved arthroscopically suturing and reattaching the long head of the biceps tendon to the proximal humerus at the superior margin of the bicipital groove with a screw at the correct tension. 3. Extensive debridement, CPT# 03725. This involved using arthroscopic hand instruments, power instruments, and radiofrequency instruments to release the long head of the biceps tendon and debride areas of labral tearing, synovitis, release [facility] L anterior capsulitis, and chondromalacia about the humeral head working within the glenohumeral joint anteriorly, superiorly and posteriorly. 4. Subacromial decompression with partial acromioplasty, CPT# 12275. This involved using arthroscopic power instruments and a radiofrequency wand to complete a bursectomy and smooth the undersurface of the acromion. The warehouse administrative assistant was medically required in order to help assist in techniques above, which require positioning the arm, holding the arthroscope, and manipulating multiple instruments and sutures at the same time. This cannot be done without the help of an experienced warehouse administrative assistant. SURGEON: Gallito Spencer EXPANDING MACHINE OPERATOR: Negin Vargas ANESTHESIA TYPE: Local By Surgeon, General LMA/ETT and Primary Nerve Block Refer to Anesthesia Record ESTIMATED BLOOD LOSS: 10 PATHOLOGY: none sent COMPLICATIONS: None Patient was transported to: PACU Patient's condition: stable Implants: Arthrex: 4.75mm SwiveLocks x 3 Indications: The patient was diagnosed with the above conditions and appropriately indicated for surgical intervention. Please see complete medical record for details. Findings: Exam under anesthesia: Full range of motion, no instability. Glenohumeral joint: Significant partial intra-articular biceps tearing and fraying. Moderate anterior synovitis and [facility] L and anterior capsulitis adhesions to the subscapularis. Significant subscapularis split tearing from the medial biceps subluxation without significant disruption from the lesser tuberosity. Obvious full-thickness delaminated retracted supraspinatus and partial infraspinatus rotator cuff tearing. Largely intact glenohumeral cartilage. Moderate anterior superior and mild posterior labral fraying. Subacromial space: Significant bursitis and significant rotator cuff adhesions to the bursa and undersurface acromion. Large retracted rotator cuff tear?somewhat chronic appearing with exposed greater tuberosity irregular bony changes. Supraspinatus tear was a large U-shaped from about the biceps groove past the infraspinatus. Partial infraspinatus involvement as well as delamination more centrally of the capsular layers. Procedure Description: In the operating room, general anesthesia was induced. Bilateral shoulders were examined. The patient was positioned in the beachchair position. All bony prominences were well-padded. Preoperative antibiotics were administered. The shoulder was prepped and draped in the usual sterile fashion. The correct patient, procedure, and side of the procedure were all verified prior to incision. Starting through the posterior portal a standard complete diagnostic arthroscopy was performed of the glenohumeral joint including inspection of the long head of the biceps, anterior and superior labrum, subscapularis tendon, supraspinatus and infraspinatus tendons, and axillary recess. The glenoid and humeral head cartilage as well as the posterior labrum were inspected from an anterior viewing portal. Significant findings and interventions noted above. Of note, significant time was spent freeing adhesions between the capsular layers and the medial margin glenoid anteriorly superiorly posteriorly as well as releasing the [facility] L and fraying the subscapularis adhesions anteriorly. Debriding irregular bony changes and prominence about the greater tuberosity as well as abrading anterior posterior labral tearing and superior SLAP tearing. Starting through the posterior portal, the arthroscope was directed into the subacromial space. A lateral 50 yard line lateral portal was created. A combination of power instruments and a radiofrequency ablator were used to debride bursitis anteriorly, posteriorly, and laterally as well as expose and smooth bone spurring on the undersurface of the acromion. The coracoacromial ligament was partially released. The bursectomy was completed viewing laterally and working from posteriorly and the rotator cuff was thoroughly inspected with findings noted above. Significant time was spent on releasing and preparing for the different tendon repairs and optimizing bone and tendon for healing. The biceps was then secured using the loop and tack method with a suture tape FiberLink placed around and then through the tendon at the level of repair to maintain tension and then withdrawn out the anterior cannula for later combined repair with the rotator cuff. The subscapularis split tear was prepared, there was no significant footprint involvement so the defect was closed with 2 simple stitches secured with SMC arthroscopic knots having been passed with a scorpion suture passer, which close the subscapularis nicely. The supraspinatus was thoroughly debrided arm position and traction confirmed for speed bridge type repair. The infraspinatus was examined beneath posteriorly as well as the capsular layers with excursion to the central to posterior medial margin. Given the large tear size from anterior posterior, 3 medial row SwiveLock anchors were placed preloaded with fiber tape. The anterior anchor also cannot. The biceps tenodesis repair suture and the knotless repair mechanism was used to add additional security to the biceps tenodesis. The posterior knotless repair mechanism was used to secure the infraspinatus, and centrally to secure the capsular layers of the supraspinatus. The fiber tapes from each anchor were then shuttled through the appropriate margin of the supraspinatus infraspinatus mediall and pairs anteriorly and posteriorly and individually centrally. Lastly, a single repair tape from each anchor was brought out laterally, the clear Dottie cannula insert used to confirm arm rotation and appropriate reduction to the lateral row anchors. An additional FiberLink cinch mode was placed anterior centrally and then repair FiberTape's secured to an anterior lateral anchor. Sliding repair suture was used to incorporate anteriormost supraspinatus and reduce dogear. The remaining repair FiberTape's were brought to her posterior lateral anchor nicely completing the repair. There was remarkably good tissue repair strength and tissue coverage across the greater tuberosity. The repair was stable through our motion and testing. The shoulder was drained of arthroscopic fluid. All portal sites were copiously irrigated. These incisions were closed using 3-0 Monocryl in a buried fashion and then covered with Mastisol, Steri-Strips, Xeroform, dry gauze, and ABDs. The dressings were covered and secured with Medipore tape. The operative extremity was placed into a sling for immobilization. The patient awoke from anesthesia without complication and was transferred to the recovery room in a stable condition.
[2023-12-01] MEDS: ceFAZolin 3,000 MG in Normal Saline 100 ML 200 MG IVPB (08:00)
[2023-12-01] MEDS: TRANEXAMIC ACID/SOD. CHL. 1,000 MG/100 ML BAG 600 MG IVPB (08:09)
--- NOTE | 2023-12-01 08:48 | W.ANESNERVE ---
Nerve Block Single Injection Procedure Date and Time Date Performed: 12/01/23 Procedure Start: 07:13 Location Where Procedure Performed Procedure Location: Day Surgery Unit Reason Performed: Postoperative Analgesia Requesting Provider: Gallito Spencer Timeout Performed Timeout Performed: Yes Monitoring Used ECG, Blood Pressure, SpO2 and See EMR for corresponding vital signs Sterility Sterility: Hand Hygiene, Surgical Cap, Surgical Mask, Sterile Gloves and Chlorhexidine Sedation Given During Procedure Sedation Given (Indicate Dose Given): Versed IV Dose:: 2mg Patient Mental Status Patient Mental Status: Sedate with meaningful communication Nerve Block 1st Nerve Block: Laterality: Left Block Type: Interscalene Ultrasound Image Saved?: Yes Needle / Catheter Used: 80mm SonoPlex II Local Anesthetic Bolus (Indicate Dose Given): Lidocaine used for local infiltration of skin, Injected in 3-5ml increments after negative blood aspiration, Bupivacaine 0.5% Dose:: 10ml and Exparel Dose:: 10ml Additives (Indicate Dose Given): Normal Saline Ultrasound: Sterile probe cover and gel used Nerve Stimulator: Supplement to Ultrasound use Paresthesia: None Procedure Tolerated: No Complications and Patient tolerated well Procedure Outcome: Successful Performed By: Drake Calvillo Supervised By: Rubén Clemens
[2023-12-01] MEDS: Bupivacaine 0.25% Pres-Free W/EPI 30 ML VIAL (10:45)
[2023-12-01] MEDS: EPINEPHrine 10 MG/10 ML ML (11:01)
--- NOTE | 2023-12-01 11:29 | W.ANESPOSTOP ---
Postoperative Evaluation Date, Time and Location Date Performed: 12/01/23 Time Performed: 11:40 Patient Location: PACU Vital Signs Most Recent Imported Vital Signs: Most Recent Vital Signs Temp Pulse Resp BP Pulse Ox 36.8 C 75 19 109/65 93 12/01/23 11:25 12/01/23 11:25 12/01/23 11:26 12/01/23 11:25 12/01/23 11:26 Pain Score Most Recent Pain Score: Most Recent Pain Score Pain Level 0 12/01/23 07:37 Assessment Mental Status: Awake (Alert & Oriented to Patient Baseline) Airway and Respiratory Function: Patent airway with normal (patient baseline) respiratory exam (encouraged to cough and deep breath) Cardiovascular Function: Hemodynamically Stable Hydration Status: Adequately Hydrated Nausea & Vomiting: No Nausea or Vomiting Pain: Pt. Denies Any Pain Peripheral Nerve Block: Regional nerve block not resolved at time of post operative discharge Teaching Patient Teaching: Discussed Safe Use of Pain Medication Given Recent Anesthesia
--- NOTE | 2023-12-01 15:19 | W.ANESPOSTOP ---
Postoperative Evaluation Date, Time and Location Date Performed: 12/01/23 Time Performed: 14:00 Patient Location: Day Surgery Unit Vital Signs Most Recent Imported Vital Signs: Most Recent Vital Signs Temp Pulse Resp BP Pulse Ox 36.4 C L 76 18 120/72 94 12/01/23 12:46 12/01/23 12:46 12/01/23 12:46 12/01/23 12:46 12/01/23 12:46 Most Recent Vital Signs Temp Pulse Resp BP Pulse Ox 36.8 C 75 19 109/65 93 12/01/23 11:25 12/01/23 11:25 12/01/23 11:26 12/01/23 11:25 12/01/23 11:26 Pain Score Most Recent Pain Score: Most Recent Pain Score Pain Level 0 12/01/23 12:46 Assessment Mental Status: Awake (Alert & Oriented to Patient Baseline) Airway and Respiratory Function: Patent airway with normal (patient baseline) respiratory exam Cardiovascular Function: Hemodynamically Stable Hydration Status: Adequately Hydrated Nausea & Vomiting: No Nausea or Vomiting Pain: Pt. Denies Any Pain Peripheral Nerve Block: Regional nerve block not resolved at time of post operative discharge
== END 2023-12-01 13:57 | disposition home or self-care (01) ==
PROVIDERS: PCP Nurse Practitioner Family; Visit Provider Student in an Organized Health Care Education/Training Program
PROC: (CPT 29827; principal; 2023-12-01 07:45)
DX: M75.22 Bicipital tendinitis, left shoulder; M75.52 Bursitis of left shoulder; M75.122 Complete rotator cuff tear or rupture of left shoulder, not specified as traumatic
CPT/HCPCS: 29827; 29828; 29823; 29826; 76942; C9290; J0665; J0690; J1100; J2250; J2371; J2405; J2704; J3475

== ENCOUNTER 2024-04-03 15:29 | Outpatient (REF) | payer OTHER, SELFPAY ==
[2024-04-03 16:35] LABS: Hemoglobin A1C 5.8 % (<5.7)
[2024-04-03 16:54] LABS: ALT 69 U/L (16-63); AST 33 U/L (15-37); Albumin 4.3 g/dL (3.4-5.0); Alkaline Phosphatase 71 U/L (46-116); Anion Gap 11.6 mmol/L (3-11); BUN 21 mg/dL (7-18); Bilirubin, Total 0.51 mg/dL (0.2-1.0); CO2 25.4 mmol/L (21.0-32.0); Calcium 9.4 mg/dL (8.5-10.1); Calculated LDL 86 mg/dL (<100); Chloride 106 mmol/L (98-107); Cholesterol 180 mg/dL (<200); Estimated GFR 88.88 (mL/min/1.73m2); Glucose 135 mg/dL (74-106); HDL Cholesterol 42 mg/dL (40-60); Sodium 143 mmol/L (136-145); Total Protein 7.4 g/dL (6.4-8.2); Triglyceride 261 mg/dL (<150)
[2024-04-03 23:27] LABS: Hepatitis C Ab w Rflx HCV PCR Negative (Negative)
== END 2024-04-03 15:30 | disposition home or self-care (01) ==
LOC: NCHCN 15:29
PROVIDERS: PCP Nurse Practitioner Family; Visit Provider Nurse Practitioner Family
DX: Z11.59 Encounter for screening for other viral diseases (principal)
CPT/HCPCS: 80053; 80061; 86803; 83036